=== PATIENT | female | born 1985 | race American Indian/Alaskan Native ===

== ENCOUNTER 2018-09-14 10:41 | Outpatient (CLI) | payer MEDICARE ==
[2018-09-14 11:22] LABS: Hematocrit 38.2 % (30.3-42.9); Hemoglobin 11.8 gm/dl (10.1-14.3); Mean Corpuscular HGB Conc 31 % (30-34); Mean Corpuscular Volume 77 fl (79-97); Platelet Count 280 K/mm3 (140-440); Red Blood Count 4.99 M/mm3 (3.65-5.03); Red Cell Distribution Width 13.5 % (13.2-15.2)
[2018-09-14 11:26] LABS: Mean Corpuscular Hemoglobin 24 pg (28-32)
[2018-09-14 11:41] LABS: Alanine Aminotransferase 16 units/L (7-56); Albumin 3.9 g/dL (3.9-5); BUN/Creatinine Ratio 17; Blood Urea Nitrogen 10 mg/dL (7-17); Calcium 8.9 mg/dL (8.4-10.2); Hemolysis Index 3
== END 2018-09-14 10:42 | disposition home or self-care (01) ==
LOC: LAB 10:41
PROVIDERS: ATTEND Specialist
DX: G43.119 Migraine with aura, intractable, without status migrainosus (principal)
CPT/HCPCS: 36415; 80053; 85027